=== PATIENT | female | born 1965 | race Two or more races ===

== ENCOUNTER 2018-10-19 09:05 | Outpatient (CLI) | payer OTHER | END 2018-10-19 09:09 | disposition home or self-care (01) | LOC: TOM 09:05 | DX: K57.30 Diverticulosis of large intestine without perforation or abscess without bleeding (principal); K59.09 Other constipation; R10.13 Epigastric pain; K21.0 Gastro-esophageal reflux disease with esophagitis; K29.00 Acute gastritis without bleeding ==

== ENCOUNTER 2018-10-26 06:25 | Day surgery (SDC) | payer OTHER | END 2018-10-26 10:00 | disposition home or self-care (01) | LOC: AMB-ENDOS 06:25 | DX: K57.32 Diverticulitis of large intestine without perforation or abscess without bleeding (principal); K52.89 Other specified noninfective gastroenteritis and colitis ==

== ENCOUNTER 2020-11-27 09:00 | Inpatient (IN) | payer OTHER ==
[~2020-11-27] VITALS: Ht 157.5 cm; Wt 79.4 kg
[2020-11-27] MEDS ORDERED: LEVO-T50 MCG PO (10:52)
[2020-11-27] MEDS ORDERED: PROTONIX40 MG PO (10:53)
[2020-11-27] MEDS ORDERED: PEPCID40 MG PO (10:53)
[2020-12-04] MEDS ORDERED: PEPCID40 MG PO (11:00)
[2020-12-04] MEDS ORDERED: BENZONATATE100 MG PO (11:00)
[2020-12-04] MEDS ORDERED: INTEGRA F CAPS1 EACH PO (11:00)
[2020-12-04] MEDS ORDERED: INTESTINEX680 M1 PO (11:01)
[2020-12-04] MEDS ORDERED: PROTONIX40 MG PO (11:03)
[2020-12-04] MEDS ORDERED: ULTRAM50 MG PO (11:03)
== END 2020-12-04 12:27 | disposition home or self-care (01) | DRG 331 ==
LOC: SURH 12-01 06:42 → O/R 12-01 06:42 → SURH 12-01 07:00
PROVIDERS: ADMIT Surgery; ATTEND Surgery
PROC: 0DTN4ZZ Resection of Sigmoid Colon, Percutaneous Endoscopic Approach (ICD-10-PCS; 2020-12-01)
PROC: 0DJD8ZZ Inspection of Lower Intestinal Tract, Via Natural or Artificial Opening Endoscopic (ICD-10-PCS; 2020-12-01)
PROC: 3E0F7SF Introduction of Other Gas into Respiratory Tract, Via Natural or Artificial Opening (ICD-10-PCS; 2020-12-01)
PROC: 0DTP4ZZ Resection of Rectum, Percutaneous Endoscopic Approach (ICD-10-PCS; principal; 2020-12-01 07:00)
DX: K57.30 Diverticulosis of large intestine without perforation or abscess without bleeding (principal); K21.9 Gastro-esophageal reflux disease without esophagitis; E03.8 Other specified hypothyroidism; D75.1 Secondary polycythemia; D64.9 Anemia, unspecified; E66.8 Other obesity